=== PATIENT | female | born 2000 | race Caucasian/White ===

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

== ENCOUNTER 2020-10-02 21:56 | Emergency (ER) | payer MEDICAID ==
[~2020-10-02] VITALS: Ht 167.6 cm; Wt 95.7 kg
[2020-10-03 00:07] VITALS: BP 117/62
== END 2020-10-03 00:30 | disposition home or self-care (01) ==
LOC: ED 22:01
DX: F41.1 Generalized anxiety disorder (principal); Z72.9 Problem related to lifestyle, unspecified
CPT/HCPCS: 99283